=== PATIENT | male | born 1935 | race Caucasian/White ===

== ENCOUNTER 2019-10-26 07:32 | Day surgery (SDC) | payer MEDICARE ==
[2019-10-26] MEDS ORDERED: Propofol 200 MG/20 ML SDV IV ONE (07:33)
[2019-10-26] MEDS ORDERED: Lidocaine 1% PF 2 ML SDV INJECT ONE (07:33)
[2019-10-26] MEDS ORDERED: Lactated Ringers 1,000 ML IV SCH (08:45)
[2019-10-26] MEDS ORDERED: Sodium Chloride 0.9% 10 ML Syringe FLUSH PRN (08:45)
--- NOTE | 2019-10-26 09:52 | PCM.OPNOTE ---
- General Post-Op/Procedure Note Date of Surgery/Procedure: 10/26/19 Operative Procedure(s): c scope Findings: nl exam Pre Op Diagnosis: positive cologuard Post-Op Diagnosis: nl exam Anesthesia Technique: MAC Primary Surgeon: Sukhjinder Alcantar Anesthesia Provider: Migue Henderson Pathology: none Complications: None Condition: Good Free Text/Narrative:: see dictation
--- NOTE | 2019-10-26 10:39 | OR ---
DATE OF OPERATION: 10/26/2019 SURGEON: Sukhjinder Alcantar MD PROCEDURE PERFORMED: Colonoscopy. PREOPERATIVE DIAGNOSIS: Positive Cologuard test. POSTOPERATIVE DIAGNOSIS: Normal exam. INDICATIONS FOR PROCEDURE: This is an 84-year-old white male who recently underwent a Cologuard exam, this came back positive. He was offered and accepted a colonoscopy. DESCRIPTION OF OPERATION: After an excellent IV sedation was administered, digital rectal exam was performed. No marked abnormality was noted. Flexible colonoscope was inserted and advanced to the cecum. Prep was excellent. The following findings were noted. Ascending colon unremarkable. Transverse colon unremarkable. Descending colon unremarkable. Sigmoid and rectum were unremarkable. Colon was deflated as the scope was removed. The patient tolerated the procedure well, was taken to recovery room in good condition. Repeat colonoscopy on a p.r.n. basis. /[id number] KELVIN/RUTH
== END 2019-10-26 10:45 | disposition home or self-care (01) ==
LOC: FB.SDS 07:32
PROVIDERS: ATTEND Surgery
DX: R19.5 Other fecal abnormalities (principal); E78.5 Hyperlipidemia, unspecified; Z88.8 Allergy status to other drugs, medicaments and biological substances; Z90.49 Acquired absence of other specified parts of digestive tract; Z98.890 Other specified postprocedural states; Z79.899 Other long term (current) drug therapy
CPT/HCPCS: J2001; J2704; J7120

== ENCOUNTER 2020-06-20 12:33 | Emergency (ER) | payer MEDICARE ==
[2020-06-20] MEDS ORDERED: Sodium Chloride 0.9% 10 ML Syringe FLUSH PRN (13:14)
--- NOTE | 2020-06-20 14:14 | CR ---
INDICATION: Dyspnea. CHEST ONE VIEW: Single AP portable upright view of the chest 06/20/20 was compared with 12/28/09. The heart remains normal in size and shape. The aorta is tortuous with calcification at the arch and descending portion. Lungs appear to be somewhat hyperaerated, could be on the basis of a mild degree of COPD and should be correlated clinically. Pulmonary markings appear to be slightly increased in the right midlung field compared with the previous study and may represent some minimal pulmonary fibrosis in that area. No consolidating pneumonia or effusion was identified. IMPRESSION: 1. No definite acute process, but difficult to exclude minimal patchy bronchopneumonia in the right midlung field. 2. ASD aorta. 3. Suggestion of some hyperaeration of the lungs. MTDD
--- NOTE | 2020-06-20 14:45 | EDM.PDOC ---
ED HPI GENERAL MEDICAL PROBLEM - General Chief Complaint: General Stated Complaint: COVID SYMPTOMS Time Seen by Provider: 06/20/20 12:35 Source of Information: Reports: Patient, Family History Limitations: Reports: No Limitations - History of Present Illness INITIAL COMMENTS - FREE TEXT/NARRATIVE: Patient presented to the ED because of cough/cold malaise and dyspnea for 2 days. He also had low grade fever this morning. He is dyspneic inspite of his oxygen saturation which is 98% on RA. There is no N/V/D. - Related Data Allergies Allergy/AdvReac Type Severity Reaction Status Date / Time ciprofloxacin Allergy Rash Verified 06/20/20 13:41 diphenhydramine Allergy Hives Verified 06/20/20 13:41 [From Benadryl] doxycycline Allergy Wheezing Verified 06/20/20 13:41 flaxseed Allergy Hives Verified 06/20/20 13:41 nut - unspecified Allergy Hives Verified 06/20/20 13:41 paroxetine [From Paxil] Allergy Other Verified 06/20/20 13:41 Home Meds: Home Meds Carbidopa/Levodopa [Sinemet 25-100 mg Tablet] 0.5 tab PO TID 10/25/19 [History] Fluticasone Propionate [Flonase] 16 gm NS ASDIRECTED PRN 10/25/19 [History] Multivitamin with Minerals [Multiple Vitamin] 1 bottle PO DAILY 10/25/19 [History] Potassium Gluconate [Potassium] 99 mg PO DAILY 10/25/19 [History] Pramipexole [Mirapex] 0.5 mg PO BEDTIME 10/25/19 [History] Ubidecarenone [Coenzyme Q-10] 30 mg PO ASDIRECTED 10/25/19 [History] Azithromycin [Zithromax] 250 mg PO DAILY #6 tablet 06/20/20 [Rx] Codeine/guaiFENesin [Robitussin AC] 10 ml PO Q6H PRN #1 bottle 06/20/20 [Rx] dexAMETHasone [Dexamethasone] 6 mg PO DAILY #30 tab 06/20/20 [Rx] Past Medical History HEENT History: Reports: Hard of Hearing, Impaired Vision Cardiovascular History: Reports: High Cholesterol Other Cardiovascular History: MILD AORTIC REGURGITATION. DIASTOLIC DYSFUNCTION Respiratory History: Reports: Asthma Other Gastrointestinal History: ABDOMINAL PAIN Genitourinary History: Reports: Prostate Disorder, Other (See Below) Other Genitourinary History: PROSTATE REMOVED IN PAST. Other Musculoskeletal History: LUMBAGO. SENILE NUCLEAR SCLEROSIS. LUMBAR DEGENERATIVE DISC DISEASE Neurological History: Reports: Migraines Endocrine/Metabolic History: Reports: None Hematologic History: Reports: Anticoagulation Therapy Other Hematologic History: ACUTE DVT Oncologic (Cancer) History: Reports: Prostate Dermatologic History: Reports: Eczema - Infectious Disease History Infectious Disease History: Reports: Chicken Pox, Measles, Mumps - Past Surgical History HEENT Surgical History: Reports: Tonsillectomy Social & Family History - Family History Family Medical History: No Pertinent Family History - Caffeine Use Caffeine Use: Reports: None ED ROS GENERAL - Review of Systems Review Of Systems: See Below Constitutional: Reports: No Symptoms HEENT: Reports: No Symptoms Respiratory: Reports: Shortness of Breath, Cough Cardiovascular: Reports: No Symptoms Endocrine: Reports: No Symptoms GI/Abdominal: Reports: No Symptoms : Reports: No Symptoms Musculoskeletal: Reports: No Symptoms Skin: Reports: No Symptoms Neurological: Reports: No Symptoms ED EXAM, GENERAL - Physical Exam Exam: See Below Exam Limited By: No Limitations General Appearance: Alert, No Apparent Distress Eye Exam: Bilateral Eye: PERRL Ears: Normal External Exam, Normal Canal Nose: Normal Inspection, Normal Mucosa, Nasal Drainage Throat/Mouth: Normal Inspection, Normal Lips, Normal Teeth, Normal Gums Head: Atraumatic, Normocephalic Neck: Normal Inspection, Supple, Non-Tender, Full Range of Motion Respiratory/Chest: No Respiratory Distress, Lungs Clear, Normal Breath Sounds, No Accessory Muscle Use, Chest Non-Tender Cardiovascular: Normal Peripheral Pulses, Regular Rate, Rhythm, No Edema, No Gallop, No JVD, No Murmur GI/Abdominal: Normal Bowel Sounds, Soft, Non-Tender Back Exam: Normal Inspection, Full Range of Motion Extremities: Normal Inspection, Normal Range of Motion, Non-Tender Neurological: Alert, Oriented, CN II-XII Intact, Normal Cognition Psychiatric: Normal Affect Course - Vital Signs Text/Narrative:: Labs/CXR was discussed with patient and his NS 1 L bolus Decadron 10 mg IV x1 Robitussin with codeine 10 ml PO x1 Last Recorded V/S: Last Vital Signs Temp 36.2 C 06/20/20 12:33 Pulse 92 06/20/20 12:33 Resp 19 06/20/20 12:33 BP 136/75 06/20/20 12:33 Pulse Ox 97 06/20/20 12:33 - Orders/Labs/Meds Orders: Active Orders 24 hr Category Date Time Status EKG Documentation Completion [RC] ASDIRECTED Care 06/20/20 13:14 Active Codeine/guaiFENesin [Robitussin AC] Med 06/20/20 14:51 Stat 10 ml PO NOW STA Sodium Chloride 0.9% [Normal Saline] 1,000 ml Med 06/20/20 15:00 Ordered IV ASDIRECTED Sodium Chloride 0.9% [Saline Flush] Med 06/20/20 13:14 Active 10 ml FLUSH ASDIRECTED PRN Saline Lock Insert [OM.PC] Routine Oth 06/20/20 13:14 Ordered EKG 12 Lead [EK] Routine Ther 06/20/20 13:14 Ordered Medication Orders Sodium Chloride (Normal Saline) 1,000 mls @ 999 mls/hr IV ASDIRECTED JOSE Sodium Chloride (Saline Flush) 10 ml FLUSH ASDIRECTED PRN PRN Reason: Keep Vein Open Last Admin: 06/20/20 13:00 Dose: 10 ml Documented by: VICKIE Labs: Laboratory Tests 06/20/20 06/20/20 06/20/20 Range/Units 13:30 13:30 13:30 WBC 6.4 (3.2-10.1) x10-3/uL RBC 5.19 (3.90-5.90) x10(6)uL Hgb 14.9 (12.9-17.7) g/dL Hct 45.9 (38.3-50.1) % MCV 88.5 (80.8-98.7) fL MCH 28.7 (27.0-33.3) pg MCHC 32.5 (28.7-35.3) g/dL RDW 14.1 (12.4-15.0) % Plt Count 139 (117-477) x10(3)uL MPV 9.0 (6.7-11.0) fL Neut % (Auto) 76.6 H (40.3-71.8) % Lymph % (Auto) 11.4 L (15.8-45.3) % [place] % (Auto) 9.0 (5.5-15.2) % Eos % (Auto) 2.7 (0.1-6.8) % Baso % (Auto) 0.3 (0.3-3.8) % Neut # (Auto) 4.9 (1.7-6.9) x10-3/uL Lymph # (Auto) 0.7 (0.5-4.5) x10-3/uL [place] # (Auto) 0.6 (0.0-1.2) x10-3/uL Eos # (Auto) 0.2 (0.0-0.6) x10-3/uL Baso # (Auto) 0.0 (0.0-0.3) x10-3/uL PT 11.6 H (9.0-11.1) sec INR 1.08 (1.00-1.24) Sodium 140 (135-145) mmol/L Potassium 4.5 (3.5-5.3) mmol/L Chloride 104 (100-110) mmol/L Carbon Dioxide 30 (21-32) mmol/L BUN 24 H (7-18) mg/dL Creatinine 1.2 (0.70-1.30) mg/dL Est Cr Clr Drug Dosing TNP Estimated GFR (MDRD) 58 L (>60) BUN/Creatinine Ratio 20.0 (9-20) Glucose 89 (80-116) mg/dL Calcium 10.0 (8.6-10.2) mg/dL Total Bilirubin 0.6 (0.1-1.3) mg/dL AST 17 (5-25) IU/L ALT 9 L (12-36) U/L Alkaline Phosphatase 81 (56-112) IU/L Troponin I (4.0-60.3) pg/mL NT-Pro-B Natriuret Pep (<=450) pg/mL Total Protein 7.1 (6.0-8.0) g/dL Albumin 3.6 (3.2-4.6) g/dL Globulin 3.5 g/dL Albumin/Globulin Ratio 1.0 SARS-CoV-2 RNA (TAWANDA) (NEGATIVE) 06/20/20 06/20/20 Range/Units 13:30 13:30 WBC (3.2-10.1) x10-3/uL RBC (3.90-5.90) x10(6)uL Hgb (12.9-17.7) g/dL Hct (38.3-50.1) % MCV (80.8-98.7) fL MCH (27.0-33.3) pg MCHC (28.7-35.3) g/dL RDW (12.4-15.0) % Plt Count (117-477) x10(3)uL MPV (6.7-11.0) fL Neut % (Auto) (40.3-71.8) % Lymph % (Auto) (15.8-45.3) % [place] % (Auto) (5.5-15.2) % Eos % (Auto) (0.1-6.8) % Baso % (Auto) (0.3-3.8) % Neut # (Auto) (1.7-6.9) x10-3/uL Lymph # (Auto) (0.5-4.5) x10-3/uL [place] # (Auto) (0.0-1.2) x10-3/uL Eos # (Auto) (0.0-0.6) x10-3/uL Baso # (Auto) (0.0-0.3) x10-3/uL PT (9.0-11.1) sec INR (1.00-1.24) Sodium (135-145) mmol/L Potassium (3.5-5.3) mmol/L Chloride (100-110) mmol/L Carbon Dioxide (21-32) mmol/L BUN (7-18) mg/dL Creatinine (0.70-1.30) mg/dL Est Cr Clr Drug Dosing Estimated GFR (MDRD) (>60) BUN/Creatinine Ratio (9-20) Glucose (80-116) mg/dL Calcium (8.6-10.2) mg/dL Total Bilirubin (0.1-1.3) mg/dL AST (5-25) IU/L ALT (12-36) U/L Alkaline Phosphatase (56-112) IU/L Troponin I 4.2 (4.0-60.3) pg/mL NT-Pro-B Natriuret Pep 55 (<=450) pg/mL Total Protein (6.0-8.0) g/dL Albumin (3.2-4.6) g/dL Globulin g/dL Albumin/Globulin Ratio SARS-CoV-2 RNA (TAWANDA) Positive H (NEGATIVE) Meds: Medications Generic Name Dose Route Start Last Admin Trade Name Sofia PRN Reason Stop Dose Admin Sodium Chloride 1,000 mls @ 999 mls/hr 06/20/20 15:00 Normal Saline IV ASDIRECTED JOSE Sodium Chloride 10 ml 06/20/20 13:14 06/20/20 13:00 Saline Flush FLUSH 10 ml ASDIRECTED PRN Administration Keep Vein Open Discontinued Medications Generic Name Dose Route Start Last Admin Trade Name Sofia PRN Reason Stop Dose Admin Dexamethasone 10 mg 06/20/20 14:50 Decadron IVPUSH 06/20/20 14:51 NOW STA Departure - Departure Time of Disposition: 16:40 Disposition: Home, Self-Care 01 Condition: Good Clinical Impression: COVID-19 - Discharge Information Prescriptions: Codeine/guaiFENesin [Robitussin AC] 10 ml PO Q6H PRN #1 bottle PRN Reason: Cough Azithromycin [Zithromax] 250 mg PO DAILY #6 tablet Referrals: Leonardo Aguilar MD [Primary Care Provider] - Forms: ED Department Discharge Additional Instructions: Please read discharge instructions on COVID-19 Increase oral fluids at least 2 liters a day Decadron 6 mg daily for 10 days Robitussin with codeine, 5-10 ml every 4-6 hours as needed for cough Z-rachel as directed Take 1 tablet daily of Vitamin C-500 mg, Vitamin D-2000 Units, Zinc-50 mg Follow up as needed Sepsis Event Note (ED) - Focused Exam Vital Signs: Vital Signs Temp Pulse Resp BP Pulse Ox 06/20/20 12:33 36.2 C 92 19 136/75 97 - My Orders Last 24 Hours: My Active Orders 06/20/20 13:14 EKG Documentation Completion [RC] ASDIRECTED Sodium Chloride 0.9% [Saline Flush] 10 ml FLUSH ASDIRECTED PRN Saline Lock Insert [OM.PC] Routine EKG 12 Lead [EK] Routine 06/20/20 14:51 Codeine/guaiFENesin [Robitussin AC] 10 ml PO NOW STA 06/20/20 15:00 Sodium Chloride 0.9% [Normal Saline] 1,000 ml IV ASDIRECTED - Assessment/Plan Last 24 Hours: My Active Orders 06/20/20 13:14 EKG Documentation Completion [RC] ASDIRECTED Sodium Chloride 0.9% [Saline Flush] 10 ml FLUSH ASDIRECTED PRN Saline Lock Insert [OM.PC] Routine EKG 12 Lead [EK] Routine 06/20/20 14:51 Codeine/guaiFENesin [Robitussin AC] 10 ml PO NOW STA 06/20/20 15:00 Sodium Chloride 0.9% [Normal Saline] 1,000 ml IV ASDIRECTED
[2020-06-20] MEDS ORDERED: Dexamethasone 4 MG/ML SDV IVPUSH STA (14:50)
[2020-06-20] MEDS ORDERED: Codeine/guaiFENesin 10-100 MG/5 ML Syrup 5 ML Cup PO STA (14:51)
[2020-06-20] MEDS ORDERED: Sodium Chloride 0.9% 1,000 ML IV SCH (15:00)
== END 2020-06-20 17:05 | disposition home or self-care (01) ==
LOC: FB.ED 12:33
DX: U07.1 COVID-19 (principal); Z88.1 Allergy status to other antibiotic agents; Z88.8 Allergy status to other drugs, medicaments and biological substances; Z91.018 Allergy to other foods; Z79.899 Other long term (current) drug therapy; Z79.01 Long term (current) use of anticoagulants
CPT/HCPCS: 36415; 71045; 80053; 83880; 84484; 85025; 85610; 93005; 94760; 96374; 99285-25; A9270-GY; J1100; J7030; U0002

== ENCOUNTER 2022-12-17 13:57 | Observation (INO) | payer MEDICARE ==
[2022-12-17 14:56] LABS: BASOPHILS PERCENT AUTO 0.5 % (0.3-3.8); EOSINOPHILS ABSOLUTE AUTO 0.2 x10-3/uL (0.0-0.6); EOSINOPHILS PERCENT AUTO 2.3 % (0.1-6.8); HEMATOCRIT 44.2 % (38.3-50.1); HEMOGLOBIN 14.5 g/dL (12.9-17.7); LYMPHOCYTES ABSOLUTE AUTO 1.4 x10-3/uL (0.5-4.5); LYMPHOCYTES PERCENT AUTO 21.8 % (15.8-45.3); MEAN CORPUSCULAR HEMOGLOBIN 28.6 pg (27.0-33.3); MEAN CORPUSCULAR HGB CONC 32.9 g/dL (28.7-35.3); MEAN PLATELET VOLUME 8.9 fL (6.7-11.0); MONOCYTES ABSOLUTE AUTO 0.5 x10-3/uL (0.0-1.2); MONOCYTES PERCENT AUTO 7.2 % (5.5-15.2); NEUTROPHILS ABSOLUTE AUTO 4.4 x10-3/uL (1.7-6.9); NEUTROPHILS PERCENT AUTO 68.2 % (40.3-71.8); PLATELET COUNT,PLT 154 x10(3)uL (117-477); RED BLOOD CELL COUNT 5.08 x10(6)uL (3.90-5.90); RED CELL DISTRIBUTION WIDTH 14.3 % (12.4-15.0); WHITE BLOOD CELL COUNT,WBC 6.4 x10-3/uL (3.2-10.1)
[2022-12-17 15:00] LABS: BLOOD UREA NITROGEN,BUN 35 mg/dL (7-18); BUN/CREATININE RATIO 29.2 (9-20); CALCIUM 9.7 mg/dL (8.6-10.2); CARBON DIOXIDE,CO2 31 mmol/L (21-32); CHLORIDE,CL 102 mmol/L (100-110); CREATININE 1.2 mg/dL (0.70-1.30); EST CRCL DRUG DOSING (CG) 41.96 mL/min; ESTIMATED GFR 59 mL/min (>60); GLUCOSE RANDOM 100 mg/dL (80-116); POTASSIUM,K 4.2 mmol/L (3.5-5.3); SODIUM,NA 138 mmol/L (135-145)
[2022-12-17] MEDS ORDERED: Iopamidol 755 Mg/ML 100 ML Bottle IV SCH (15:00)
[2022-12-17 15:06] LABS: A/G RATIO 1.1; ALANINE AMINOTRANSFERASE,ALT 7 U/L (12-36); ALBUMIN 3.3 g/dL (3.2-4.6); ALKALINE PHOSPHATASE 79 IU/L (56-112); ASPARTATE AMNIOTRANSFERASE,AST 18 IU/L (5-25); BILIRUBIN TOTAL 0.5 mg/dL (0.1-1.3); PROTEIN TOTAL,TP 6.3 g/dL (6.0-8.0)
[2022-12-17 15:14] LABS: D-DIMER QUANTITATIVE 1.24 mg/LFEU (0.0-0.59); INR 1.18 (1.00-1.24)
[2022-12-17 15:18] LABS: PROTHROMBIN TIME 12.1 sec (9.0-11.1); PTT,PARTIAL THROMBOPLSTIN TIME 31.3 SECONDS (24.4-33.2)
[2022-12-17] MEDS ORDERED: Sodium Chloride 0.9% 1,000 ML IV ONE (15:42)
[2022-12-17 15:49] LABS: APPEARANCE,URINE CLEAR (CLEAR); BILIRUBIN,URINE NEGATIVE (NEGATIVE); COLOR,URINE YELLOW (YELLOW); GLUCOSE,URINE NORMAL (NORMAL); KETONES,URINE NEGATIVE (NEGATIVE); LEUKOCYTE ESTERASE,URINE NEGATIVE (NEGATIVE); NITRITE,URINE NEGATIVE (NEGATIVE); OCCULT BLOOD,URINE NEGATIVE (NEGATIVE); PROTEIN,URINE NEGATIVE (NEGATIVE); UROBILINOGEN,URINE NORMAL (NEGATIVE)
[2022-12-17 15:50] LABS: BACTERIA,URINE FEW (NS); RBC,URINE NOT SEEN (0-5); SQUAMOUS EPITHELIAL CELLS,UR RARE (NS,R,O); WBC,URINE 0-5 (0-5)
[2022-12-17 17:34] LABS: INFLUENZA A NAA NEGATIVE (NEGATIVE); INFLUENZA B NAA NEGATIVE (NEGATIVE)
[2022-12-17 17:40] LABS: CORONAVIRUS COVID-19 NAA NEGATIVE (NEGATIVE)
[2022-12-17] MEDS ORDERED: Zolpidem 5 MG Tab PO PRN (18:39)
[2022-12-17] MEDS ORDERED: Ondansetron 4 MG/2 ML SDV IV PRN (18:39)
[2022-12-17] MEDS ORDERED: Acetaminophen 325 MG Tab PO PRN (18:39)
[2022-12-17] MEDS ORDERED: Magnesium Hydroxide 400 MG/5 ML Susp 30 ML Cup PO PRN (18:39)
[2022-12-17] MEDS ORDERED: Clopidogrel 75 MG Tab PO SCH (19:00)
[2022-12-17] MEDS ORDERED: Enoxaparin 40 MG/0.4 ML Syringe SUBCUT SCH (21:00)
[2022-12-17] MEDS ORDERED: PRAMIPEXOLE DI HCL 0.75 MG PO SCH (21:00)
[2022-12-17] MEDS ORDERED: CARBIDOPA PO SCH (21:00)
[2022-12-17] MEDS ORDERED: PRAMIPEXOLE 0.5 MG PO SCH (21:00)
[2022-12-17] MEDS ORDERED: Non-Formulary Medication 1 Each (Gabapentin [Neurontin] 300 MG Cap) PO SCH (21:00)
[2022-12-17] MEDS ORDERED: [UNRECOGNIZED DRUG - OTHER] PO SCH (21:00)
[2022-12-17] MEDS ORDERED: LEVODOPA PO SCH (21:00)
[2022-12-17] MEDS ORDERED: Gabapentin 300 MG Cap *PT OWN MED PO SCH (21:00)
[2022-12-18] MEDS ORDERED: CARBIDOPA PO SCH (05:00)
[2022-12-18] MEDS ORDERED: LEVODOPA PO SCH (05:00)
[2022-12-18 07:06] LABS: BLOOD UREA NITROGEN,BUN 26 mg/dL (7-18); CALCIUM 9.6 mg/dL (8.6-10.2); CARBON DIOXIDE,CO2 26 mmol/L (21-32); CHLORIDE,CL 106 mmol/L (100-110); EST CRCL DRUG DOSING (CG) 50.35 mL/min; ESTIMATED GFR 73 mL/min (>60); GLUCOSE RANDOM 88 mg/dL (80-116); POTASSIUM,K 4.2 mmol/L (3.5-5.3); SODIUM,NA 139 mmol/L (135-145)
[2022-12-18] MEDS ORDERED: POTASSIUM GLUCONATE 90 MG PO SCH (09:00)
[2022-12-18] MEDS ORDERED: Non-Formulary Medication 1 Each (Multivitamin With Minerals [Multiple Vitamin] 1 EACH Tabl PO SCH (09:00)
[2022-12-18] MEDS ORDERED: Clopidogrel 75 MG Tab PO SCH (09:00)
[2022-12-18] MEDS ORDERED: Aspirin 325 MG Tab.EC PO SCH (09:00)
[2022-12-19] MEDS ORDERED: Aspirin 81 MG Tab.EC PO SCH (09:00)
== END 2022-12-18 11:00 | disposition home or self-care (01) ==
LOC: FB.ED 13:57 → FB.MS 17:41
PROVIDERS: ADMIT Family Medicine; ATTEND Family Medicine
DX: G45.9 Transient cerebral ischemic attack, unspecified (principal); R20.0 Anesthesia of skin; I35.1 Nonrheumatic aortic (valve) insufficiency; I50.30 Unspecified diastolic (congestive) heart failure; N18.9 Chronic kidney disease, unspecified; N17.9 Acute kidney failure, unspecified; I65.21 Occlusion and stenosis of right carotid artery; J45.909 Unspecified asthma, uncomplicated; E78.00 Pure hypercholesterolemia, unspecified; I51.89 Other ill-defined heart diseases; G43.909 Migraine, unspecified, not intractable, without status migrainosus; Z88.1 Allergy status to other antibiotic agents; Z88.8 Allergy status to other drugs, medicaments and biological substances; Z91.018 Allergy to other foods; Z87.892 Personal history of anaphylaxis; Z79.01 Long term (current) use of anticoagulants; Z79.02 Long term (current) use of antithrombotics/antiplatelets; Z79.899 Other long term (current) drug therapy; Z90.89 Acquired absence of other organs; Z90.49 Acquired absence of other specified parts of digestive tract; Z90.79 Acquired absence of other genital organ(s); Z86.718 Personal history of other venous thrombosis and embolism; Z86.711 Personal history of pulmonary embolism; Z86.69 Personal history of other diseases of the nervous system and sense organs
CPT/HCPCS: 0240U; 36415; 70450; 70496; 70498; 71046; 80048; 80053; 81001; 82947; 84484; 85025; 85379; 85610; 85730; 86140; 93005; 93971; 96360; 96372; 99223; 99238; 99285; A9270; G0378; J1650; J7030; Q9967

== ENCOUNTER 2023-09-09 06:42 | Day surgery (SDC) | payer MEDICARE ==
[2023-09-09] MEDS ORDERED: fentaNYL 100 MCG/2 ML SDV IV ONE (06:43)
[2023-09-09] MEDS ORDERED: Midazolam 1 MG/ML 2 ML SDV IV ONE (06:43)
[2023-09-09] MEDS ORDERED: Sodium Chloride 0.9% 10 ML Syringe IV ONE (06:43)
[2023-09-09] MEDS ORDERED: Sodium Chloride 0.9% 10 ML Syringe FLUSH PRN (07:30)
[2023-09-09] MEDS ORDERED: Lactated Ringers 1,000 ML IV SCH (07:30)
[2023-09-09] MEDS: acetaZOLAMIDE 500 MG Cap.ER PO ONE (09:47)
== END 2023-09-09 10:21 | disposition home or self-care (01) ==
LOC: FB.SDS 06:42
PROVIDERS: ATTEND Ophthalmology
DX: H25.813 Combined forms of age-related cataract, bilateral (principal); J45.909 Unspecified asthma, uncomplicated; N18.2 Chronic kidney disease, stage 2 (mild); E78.5 Hyperlipidemia, unspecified; Z87.891 Personal history of nicotine dependence; Z98.890 Other specified postprocedural states; Z79.899 Other long term (current) drug therapy; Z88.1 Allergy status to other antibiotic agents; Z88.9 Allergy status to unspecified drugs, medicaments and biological substances; Z91.018 Allergy to other foods; Z88.8 Allergy status to other drugs, medicaments and biological substances
CPT/HCPCS: A9270-GY; J2250; J3010; J3490; V2632

== ENCOUNTER 2023-09-23 07:00 | Day surgery (SDC) | payer MEDICARE ==
[~2023-09-23 07:00] MED LIST: Lactated Ringers 1,000 ML IV SCH
[2023-09-23] MEDS ORDERED: Midazolam 1 MG/ML 2 ML SDV IV ONE (07:01)
[2023-09-23] MEDS ORDERED: fentaNYL 100 MCG/2 ML SDV IV ONE (07:01)
[2023-09-23] MEDS: Sodium Chloride 0.9% 10 ML Syringe FLUSH PRN (07:50)
[2023-09-23] MEDS: acetaZOLAMIDE 500 MG Cap.ER PO ONE (09:30)
== END 2023-09-23 09:52 | disposition home or self-care (01) ==
LOC: FB.SDS 07:00
PROVIDERS: ATTEND Ophthalmology
DX: H26.9 Unspecified cataract (principal); N18.2 Chronic kidney disease, stage 2 (mild); G20.A1 Parkinson's disease without dyskinesia, without mention of fluctuations; J45.909 Unspecified asthma, uncomplicated; E78.5 Hyperlipidemia, unspecified; Z87.891 Personal history of nicotine dependence; Z79.899 Other long term (current) drug therapy; Z79.82 Long term (current) use of aspirin; Z88.8 Allergy status to other drugs, medicaments and biological substances; Z91.018 Allergy to other foods; Z88.1 Allergy status to other antibiotic agents
CPT/HCPCS: A9270-GY; J2250; J3010; J3490; V2632